=== PATIENT | female | born 1985 | race Caucasian/White ===

== ENCOUNTER 2018-01-22 20:54 | Emergency (ER) | payer SELFPAY ==
[~2018-01-22] VITALS: Ht 154.9 cm; Wt 60.0 kg
[2018-01-22] MEDS ORDERED: FAMOTIDINE 20 MG/2 ML ONE (21:19)
[2018-01-22] MEDS ORDERED: ONDANSETRON 2MG/ML, 2ML ONE (21:19)
[2018-01-22 21:30] LABS: BASOPHILS # (AUTO) 0.02 x10^3/uL (0-0.1); BASOPHILS % (AUTO) 0 % (0-1); EOSINOPHILS # (AUTO) 0.04 x10^3/uL (0-0.4); EOSINOPHILS % (AUTO) 1 % (1-7); LYMPHOCYTES # (AUTO) 3.43 x10^3/uL (1-3.4); LYMPHOCYTES % (AUTO) 53 % (22-44); MD NO; MEAN CORPUSCULAR HEMOGLOBIN 26.6 pg (27.0-34.8); MEAN CORPUSCULAR HGB CONC 33.6 g/dL (32.4-35.8); MEAN CORPUSCULAR VOLUME 79.3 fL (80-100); MEAN PLATELET VOLUME 7.8 fL (7.4-10.4); MONOCYTES # (AUTO) 0.33 x10^3/uL (0.2-0.8); MONOCYTES % (AUTO) 5 % (2-9); NEUTROPHILS # (AUTO) 2.63 x10^3/uL (1.8-6.8); NEUTROPHILS % (AUTO) 41 % (42-75); PLATELET COUNT 220 x10^3/uL (130-400); RED BLOOD COUNT 4.74 x10^6/uL (3.82-5.3)
[2018-01-22] MEDS ORDERED: FAMOTIDINE 20 MG/2 ML IVP ONE (21:30)
[2018-01-22] MEDS ORDERED: ONDANSETRON 2MG/ML, 2ML IVPush ONE (21:30)
[2018-01-22 21:41] LABS: ALANINE AMINOTRANSFERASE 35 U/L (12-78); ANION GAP 16 mmol/L (5-15); CALCIUM 8.8 mg/dL (8.5-10.1); CHLORIDE 99 mmol/L (98-107); CREATININE 0.69 mg/dL (0.55-1.02)
[2018-01-22 21:45] LABS: HCG UR SG 1.024 (1.003-1.030)
[2018-01-22 21:46] LABS: CULTURE INDICATED? YES; MICROSCOPIC INDICATED
[2018-01-22 21:46] LABS: ALKALINE PHOSPHATASE 109 U/L (45-117); BILIRUBIN,TOTAL 0.7 mg/dL (0.2-1.0); TOTAL PROTEIN 8.4 g/dL (6.4-8.2)
[2018-01-22 21:53] LABS: AMPHETAMINE SCREEN, URINE Negative (Negative); BARBITURATE SCREEN, URINE Negative (Negative); BENZODIAZEPINE SCREEN, URINE Negative (Negative); CANNABINOID SCREEN, URINE Negative (Negative); COCAINE SCREEN, URINE Negative (Negative); METHADONE SCREEN, URINE Negative (Negative); OPIATE SCREEN, URINE Negative (Negative)
[2018-01-22] MEDS ORDERED: POTASSIUM CHLORIDE 20 MEQ TAB.ER.PRT PO ONE (22:00)
[2018-01-22] MEDS ORDERED: POTASSIUM CHLORIDE 20 MEQ TAB.ER.PRT ONE (22:12)
[2018-01-22 22:18] VITALS: BP 129/74
== END 2018-01-23 01:04 | disposition home or self-care (01) ==
LOC: ED 01-23 00:59
DX: F15.120 Other stimulant abuse with intoxication, uncomplicated (principal); E87.6 Hypokalemia; R82.99 Other abnormal findings in urine; Z72.9 Problem related to lifestyle, unspecified
CPT/HCPCS: 36415; 80053; 80307; 81001; 81025; 85025; 87086; 96374; 96375; 99284; J2405; S0028